=== PATIENT | male | born 1940 | race Caucasian/White ===

== ENCOUNTER → 2016-04-02 07:37 | Outpatient (CLI) | payer MEDICARE ==
[2016-03-05 10:39] VITALS: BMI 23.8
[~2016-04-02 07:37] MED LIST: BAYER CHEWABLE81 MG PO; CALCIUM 500 + D1 TAB PO; FERROUS SULFAT325 MG PO; FIBRICOR105 MG PO; FISH OIL 1,0001 CA1 PO; FOSINOPRIL SODI40 MG PO; GLUCOPHAGE XR750 MG PO; HYDROCHLOROTHIA50 MG PO; HYDROCODON-ACE1 EAC7 PO; KLOR-CON 1010 MEQ PO; LANOXIN125 MCG PO; LANTUS SOL100 UNIT/1 SC; LIPITOR10 MG PO; LIPITOR40 MG PO; NORVASC10 MG PO; OMEGA 3 FISH OI1 CAP PO; OMEPRAZOLE20 M1 PO; TENORMIN50 MG PO; ZYLOPRIM300 MG PO
== END | disposition home or self-care (01) ==
LOC: D.CT 07:37
DX: I62.00 Nontraumatic subdural hemorrhage, unspecified (principal)

== ENCOUNTER 2016-04-19 08:34 | Day surgery (SDC) | payer MEDICARE ==
[~2016-04-19] VITALS: Ht 182.9 cm; Wt 72.7 kg
[~2016-04-19 08:34] MED LIST changes: -LIPITOR40 MG PO; -OMEGA 3 FISH OI1 CAP PO
[2016-04-19] MEDS ORDERED: LIPITOR40 MG PO (09:09)
[2016-04-19] MEDS ORDERED: BAYER CHEWABLE81 MG PO (09:11)
[2016-04-19] MEDS ORDERED: OMEGA 3 FISH OI1 CAP PO (09:12)
[2016-04-19 09:19] VITALS: BP 156/72; BMI 21.7
[2016-04-19 09:51] LABS: BASOPHILS 0.2 % (0.0-2.0); EOSINOPHILS 1.7 % (0-7); HEMOGLOBIN 10.6 g/dL (13.5-17.5); IMMATURE GRANULOCYTES 0.6 % (0-5); LYMPHOCYTES 21.7 % (15-50); MCH 29.3 pg (26.0-34.0); MCHC 33.1 g/dL (31.0-37.0); MCV 88.4 fL (80.0-100.0); MEAN PLATELET VOLUME 10.4 fL (7.4-10.4); MONOCYTES 10.2 % (2-11); NEUTROPHILS 65.6 % (40-80); RBC 3.62 10x6/uL (4.20-6.10); RDW 13.9 % (11.5-14.5); WBC 8.4 10x3/uL (4.8-10.8)
[2016-04-19 09:52] LABS: PLATELET COUNT 266 10x3/uL (130-400)
[2016-04-19 09:58] LABS: APTT 28.5 SECONDS (22.8-39.4)
[2016-04-19 10:05] LABS: ANION GAP 14.9 mmol/L (8-16); CALCIUM 10.3 mg/dL (8.5-10.1); CARBON DIOXIDE 26.9 mmol/L (21.0-32.0); CREATININE - SERUM 1.1 mg/dL (0.6-1.3); POTASSIUM - SERUM 3.8 mmol/L (3.5-5.1)
--- NOTE | 2016-04-19 12:26 | NUR ---
1200 RECEIVED PT FROM SPECIALS, PT IS ALERT. DENIES ANY C/O PAIN, NAUSEA OR SOB. RR IS EVEN AND UNLABORED ON ROOM AIR. DRESSING TO LEFT UPPER CHEST NEAR AXILLA IS CDI. PT REQUESTS COFFEE AND THIS SERVED. CALL LIGHT INREACH, PT ON VS MONITOR. INSTRUCTED PT TO CALL FOR NEEDS.
--- NOTE | 2016-04-19 15:04 | NUR ---
1315 PT HAS TOLERATED DIET WTIH NO C/O. RR EVEN AND UNLABORED ON ROOM AIR. PT DENIES ANY C/O. DRESSING CDI RIGHT UPPER CHEST AREA. FAMILY AT BEDSIDE. CALL LIGHT IN REACH. 1430 T/C FROM DR CHAVEZ, REQUESTED REPORT ON PT CONDITION. PT HAS DENIED ANY C/O PAIN OR SHORTNESS OF BREATH, HAS BEEN SAT 94-95% ON ROOM AIR. DR CHAVEZ ORDERED O2 AND NONREBREATHER MASK, CXR REPEAT AT 3:45. 1445 O2 AND NONREBREATHER MASK ON PT PER ORDERS. PT DENIES ANY C/O. INSTRUCTED PT TO CALL FOR NEEDS AND HE VERBALIZES UNDERSTANDING. CALL LIGHT IN REACH.
--- NOTE | 2016-04-19 15:22 | NUR ---
0740 ASHLEY KENDALL RN HAS ROUNDED ON PATIENT. NEW ORDER RECEIVED TO GIVE PT HIS HOME MEDS OF AMLODIPINE, ATENOLOL AND HCTZ.
--- NOTE | 2016-04-19 16:08 | NUR ---
1605 REPORT AND CARE TO ALEXANDRE RAMOS RN.
--- NOTE | 2016-04-19 17:04 | NUR ---
REPORT CALLED TO MICHELLE AGUILA RN ON MED/SURG, PATIENT TRANSPORTED BY WHEELCHAIR TO ROOM 2205 IN STABLE CONDITION
--- NOTE | 2016-04-19 17:30 | NUR ---
PT RECEIVED TO ROOM VIA WHEELCHAIR. PT ALERT AND ORIENTED. ORIENTED PT TO ROOM, PHONE AND CALL LIGHT, PT VERBALIZES UNDERSTANDING. BED LOW. PHONE AND CALL LIGHT IN REACH. SIDE RAILS UP X2.
[2016-04-19 17:38] VITALS: BP 146/67; Ht 182.9 cm; Wt 72.7 kg
--- NOTE | 2016-04-19 17:45 | NUR ---
PATIENT RECEIVED TO ROOM 2205. ACCOMPANIED BY OP NURSE AND . HE IA AWAKE AND ALERT, ABLE TO TRANSFER SELF FROM THE WHEELCHAIR TO THE BED. IVF INFUSING TO PATENT IV SITE. HE IS WEARING O2 PER NC AT 2LPM PORTABLE, CONNECTED TO THE WALL AT 2LPM. HE DENIES PAIN AT THIS TIME. DENIES NEEDS THOUGH HE IS HUNGRY. CALL LIGHT IS WITHIN HIS REACH, HE UNDERSTANDS HOW IT WORKS. JEANNETTE IS WORKING ON HIS ASSESSMENT.
--- NOTE | 2016-04-19 18:55 | NUR ---
PT REQUESTED DINNER TRAY. UNABLE TO NOTIFY DIETARY CONCERNING DINNER TRAY. OFFERED A SANDWICH TRAY OR CHICKEN NOODLE SOUP. PT ACCEPTED CHICKEN NOODLE SOUP AND CRACKERS. DENIES OTHER NEEDS AT THIS TIME. BED LOW. PHONE AND CALL LIGHT IN REACH. SIDE RAILS UP X2.
--- NOTE | 2016-04-19 19:20 | NUR ---
PT SITTING UP IN BED EATING DINNER. ADMINISTERED POTASSIUM PO AND METFORMIN PO. DENIES OTHER NEEDS AT THIS TIME. BED LOW. PHONE AND CALL LIGHT IN REACH. SIDE RAILS UP X2.
--- NOTE | 2016-04-19 20:56 | NUR ---
MEDS GIVEN PER MAR, 4 UNIT INSULIN GIVEN PER SLIDING SCALE, [place] WE[place], DENIES NEED,SR'S UP X2, CL IN REACH
[2016-04-19 21:00] VITALS: BP 141/62
--- NOTE | 2016-04-19 21:55 | NUR ---
LYING IN BED AWAKE, DENIES NEEDS, CL IN REACH
[2016-04-20 01:00] VITALS: BP 144/63
--- NOTE | 2016-04-20 01:44 | NUR ---
RESTING WITH EYES CLOSED, RESP WITH EASE, NO DISTRESS NOTED, SR'S UP X2, CL IN REACH
[2016-04-20 05:00] VITALS: BP 125/63
[2016-04-20 06:02] LABS: ANION GAP 10.5 mmol/L (8-16); CARBON DIOXIDE 30.5 mmol/L (21.0-32.0); CREATININE - SERUM 1.1 mg/dL (0.6-1.3)
--- NOTE | 2016-04-20 07:00 | NUR ---
REPORT RECIEVED ASSUMED CARE. PATIENT IN CHAIR DRESSED AND READY TO GO HOME. EXPLAINED TO PATIENT HAD TO WAIT FOR DRThierry AND DISCHARGE PAPERS. VERBALIZED UNDERSTANDING. CALL LIGHT WITHIN REACH.
[2016-04-20 09:14] VITALS: BP 145/58
--- NOTE | 2016-04-20 10:45 | NUR ---
PATIENT RECIEVED DISCHARGE INSTRUCTIONS. VERBALIZED UNDERSTANDING. NO QUESTIONS AT THIS TIME. FAMILY AT SIDE. IV REMOVED WITH CATH TIP INTACT. CALL LIGHT WITHIN REACH.
== END 2016-04-20 10:57 | disposition home or self-care (01) ==
LOC: D.OPS 08:34 → D.MS 08:34 → D.OPS 11:00 → D.SP 13:00 → D.CT 13:00 → D.OPS 13:00 → D.MS 17:30 → D.SP 04-20 09:00 → D.CT 04-20 09:00 → D.OPS 04-20 10:57
PROVIDERS: Radiology Diagnostic Radiology
DX: C34.12 Malignant neoplasm of upper lobe, left bronchus or lung (principal); I10 Essential (primary) hypertension; E11.9 Type 2 diabetes mellitus without complications; I50.9 Heart failure, unspecified

== ENCOUNTER → 2016-05-03 08:34 | Outpatient (CLI) | payer MEDICARE ==
[2016-04-19 17:38] VITALS: BMI 21.7
[~2016-05-03 08:34] MED LIST changes: +LIPITOR40 MG PO; +OMEGA 3 FISH OI1 CAP PO
== END | disposition home or self-care (01) ==
LOC: D.RT 08:34
DX: J44.9 Chronic obstructive pulmonary disease, unspecified (principal)

== ENCOUNTER 2016-05-10 05:13 | Day surgery (SDC) | payer MEDICARE ==
[~2016-05-10] VITALS: Ht 182.9 cm; Wt 74.8 kg
[2016-05-10 06:27] VITALS: BP 149/64; Ht 182.9 cm; Wt 74.8 kg
[2016-05-10 06:54] LABS: BASOPHILS 0.2 % (0.0-2.0); EOSINOPHILS 1.3 % (0-7); HEMATOCRIT 35.5 % (42.0-54.0); HEMOGLOBIN 11.6 g/dL (13.5-17.5); IMMATURE GRANULOCYTES 1.3 % (0-5); LYMPHOCYTES 19.3 % (15-50); MCHC 32.7 g/dL (31.0-37.0); MCV 88.8 fL (80.0-100.0); NEUTROPHILS 70.9 % (40-80); PLATELET COUNT 316 10x3/uL (130-400); RDW 13.9 % (11.5-14.5); WBC 11.3 10x3/uL (4.8-10.8)
[2016-05-10 07:25] LABS: APTT 29.6 SECONDS (22.8-39.4); INR 1.06 (0.85-1.17); PROTIME 13.6 SECONDS (11.6-15.0)
[2016-05-10] MEDS ORDERED: HYDROCODON-ACE1 EAC7 PO (08:39)
--- NOTE | 2016-05-10 08:59 | NUR ---
XRAY DONE AT BEDSIDE IN PACU
--- NOTE | 2016-05-10 09:23 | OP ---
PATIENT NAME: JACQUE MOSLEY MEDICAL RECORD: [id number] :38 LOCATION:D.[facility] ADMISSION DATE: SURGEON: WILLIAN GARRIDO MD DATE OF OPERATION: 05/10/2016 PREOPERATIVE DIAGNOSIS: Non-small cell left lung cancer. POSTOPERATIVE DIAGNOSIS: Non-small cell left lung cancer. SURGEON: Willian Garrido MD PROCEDURES PERFORMED: 1. Insertion of left subclavian tunneled PowerPort. 2. Immediate interpretation of fluoroscopy. ANESTHESIA: General. COMPLICATIONS: None. SPECIMENS: None. Case was clean. ESTIMATED BLOOD LOSS: 5 cc. OPERATIVE COURSE: After consent was obtained, the patient was taken to the operating room and placed in supine position on the operating table. Next, general anesthesia was given via endotracheal intubation after a timeout was taken to confirm the correct patient and procedure. The left chest was prepped and draped in typical sterile fashion. A 30 cc of local anesthetic were injected in the left chest wall. The left subclavian vein was cannulated on the first pass. Under fluoroscopy, a guidewire was passed through the needle and advanced to the atriocaval junction. The needle was removed. A stab incision was made with 11-blade scalpel. Next, a skin incision was made in the left chest wall with a 15-blade scalpel. Dissection continued to the level of the pectoralis fascia using electrocautery. A small pocket was created using a combination of electrocautery and blunt dissection. The tunneling device was then used to tunnel the catheter from the skin incision to the needle stick site. The dilator and breakaway sheath were then passed over the wire under fluoroscopy. The wire and dilator were removed. The catheter was cut to length. The catheter was placed through the breakaway sheath under fluoroscopy and advanced the atriocaval junction, at which time, the breakaway sheath was removed. The port was then accessed. Blood was aspirated. It was then flushed with 5000 units of heparin and 30 cc of saline. The port was then secured to the pectoralis fascia using interrupted 2-0 Prolene suture. Subcutaneous tissue was then closed with 3-0 Vicryl suture. The skin was closed with 4-0 Stratafix, Mastisol and Steri-Strips. The port was then accessed with the Us needle and the wound was dressed. At the end of the case, all needle and instrument counts were correct. No complications occurred. The patient was extubated and transferred to the PACU in stable condition. TRANSINT:[id number] Voice Confirmation ID: [id number] DOCUMENT ID: [id number] OPERATIVE REPORT [id number] JACQUE MOSLEY,WILLIAN Parker MD at 0923 CC: [id number] DICTATION DATE: 05/10/16 0837 INSTRUCTIONAL DESIGNER: 05/10/16 0904 [place] [address]
--- NOTE | 2016-05-10 10:03 | NUR ---
0915-RECEIVED PT FROM PACU AWAKE AND ALERT. PT CAME BACK TO ROOM WITH SUGAR OF 73, GAVE 8OZ OF OJ AND WILL REEVALUATE IN 30 MINUTES. LEFT UPPER CHEST PORT BANDAGE CDI, WITH PORT ACCESSED. WILL CONTINUE TO MONITOR
--- NOTE | 2016-05-10 10:08 | NUR ---
0945-REPORT TO TAYLOR TAYLOR
== END 2016-05-10 11:45 | disposition home or self-care (01) ==
LOC: D.OPS 05:13 → D.PAN 07:30 → D.OPS 07:30
PROVIDERS: Anesthesiology
DX: C34.92 Malignant neoplasm of unspecified part of left bronchus or lung (principal)

== ENCOUNTER 2016-09-02 06:13 | Day surgery (SDC) | payer MEDICARE ==
[2016-09-01 16:31] LABS: ANION GAP 14.2 mmol/L (8-16); CALCIUM 9.9 mg/dL (8.5-10.1); CARBON DIOXIDE 26.8 mmol/L (21.0-32.0); CREATININE - SERUM 1.1 mg/dL (0.6-1.3)
[2016-09-01 16:32] LABS: APTT 26.7 SECONDS (22.8-39.4); INR 0.98 (0.85-1.17); PROTIME 12.8 SECONDS (11.6-15.0)
[~2016-09-02] VITALS: Ht 182.9 cm; Wt 73.5 kg
[2016-09-02 13:00] VITALS: BP 130/55; Ht 182.9 cm; Wt 73.5 kg
--- NOTE | 2016-09-02 19:24 | NUR ---
1700 IV DC WITH CATHER TIP INTACT
--- NOTE | 2016-09-03 15:49 | OP ---
PATIENT NAME: JACQUE MOSLEY MEDICAL RECORD: [id number] :38 LOCATION:D.[facility] ADMISSION DATE: SURGEON: CORI SHANKS MD DATE OF OPERATION: 09/02/2016 SURGEON: Cori Shanks MD. ANESTHESIA: General anesthesia by Ruddy Ruby CRNA. PREOPERATIVE DIAGNOSES: Phimosis, diabetes mellitus type 2. POSTOPERATIVE DIAGNOSIS: Phimosis, diabetes mellitus type 2. FINDINGS: Phimosis with tight constriction band. PROCEDURE: Circumcision. SPECIMENS: Penile foreskin. ESTIMATED BLOOD LOSS: None. CLINICAL HISTORY: This is a 75-year-old male with a history of diabetes mellitus for several years. He is uncircumcised. He has a history of prostate cancer treated with radical prostatectomy at the [facility] [place] in 2000. He has recently diagnosed of left lung cancer in the left upper lobe. He had radiation and he is currently undergoing chemotherapy with Dr. Jennifer Wilde. She noted that the patient had paraphimosis and referred the patient to me. He has a tight constriction band on the penis which prevented the foreskin from being pulled back in the forward position. I managed to manually reduce it, but he is at risk for recurrence of paraphimosis. We agreed to have circumcision performed on the patient. He will eventually need a lung lobectomy for lung cancer. He has no medication allergies. He was given Ancef 1 gram IV automation and controls supervisor to the OR today. DESCRIPTION OF PROCEDURE: The patient was given induction of general anesthesia. He is in supine position. He was prepped and draped. A 2-0 nylon suture was placed through the glans penis and used for traction. We pulled the penis into its maximal natural length to simulate full length erection. The foreskin was then marked using a marking pen. A border about 5 mm proximal to the arceo of the glans was marked out by the distal border. We then pulled the foreskin back and its forward position and again with the penis in full erection length, we marked out the corresponding location on the cutaneous portion of the foreskin. Two incisions are made using a 15 blade. We then used Metzenbaum scissors to trim the underlying dartos fascia free from the cutaneous portion. Once this was entirely down, the foreskin specimen was sent to pathology in formalin. We coagulated any bleeding points in the dartos fascia. The skin was reapproximated using simple interrupted 4-0 Vicryl. A Vaseline gauze dressing and a Coban was applied to diminish postoperative edema. The patient will remove the Coban in 2 days' time. I will see him in followup next week to check on his healing. TRANSINT:[id number] Voice Confirmation ID: [id number] DOCUMENT ID: [id number] OPERATIVE REPORT [id number] JACQUE MOSLEY ROBERT S MD at 1549 CC: [id number] DICTATION DATE: 09/02/16 1603 FACILITY SUPERVISOR: 09/03/16 0156 [facility] 09/02/16 [id number] [place] [address]
== END 2016-09-02 17:15 | disposition home or self-care (01) ==
LOC: D.OPS 06:13 → D.PAN 11:45 → D.OPS 12:00 → D.PAN 13:30 → D.OPS 17:15
PROVIDERS: Anesthesiology
DX: N47.1 Phimosis (principal); E11.9 Type 2 diabetes mellitus without complications; Z85.46 Personal history of malignant neoplasm of prostate; C34.12 Malignant neoplasm of upper lobe, left bronchus or lung; Z79.899 Other long term (current) drug therapy

== ENCOUNTER → 2016-11-08 09:15 | Outpatient (CLI) | payer MEDICARE ==
[2016-09-02 13:00] VITALS: BMI 22.0
== END | disposition home or self-care (01) ==
LOC: D.CT 09:15
DX: R94.39 Abnormal result of other cardiovascular function study (principal)

== ENCOUNTER → 2016-12-10 08:42 | Outpatient (CLI) | payer MEDICARE ==
[2016-09-02 13:00] VITALS: BMI 22.0
== END | disposition home or self-care (01) ==
LOC: D.RT 08:42
DX: C34.90 Malignant neoplasm of unspecified part of unspecified bronchus or lung (principal); I10 Essential (primary) hypertension